=== PATIENT | female | born 1970 | race Caucasian/White ===

== ENCOUNTER 2025-02-04 21:18 | Emergency (ER) | payer BC, SELFPAY ==
[2025-02-04 21:24] VITALS: PULSE 125; O2SAT 95
--- NOTE | 2025-02-04 21:24 | ED_ITS ---
HPI - Neck Pain/Injury General Chief Complaint: Neck Pain/Injury Stated Complaint: neck, head, back px x2 days Time Seen by Provider: 02/04/25 21:21 History of Present Illness HPI Narrative: 55-year-old female with a past medical history diabetes, comes into the ED from home for evaluation of neck pain. 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 However she denies any numbness weakness tingling to bilateral upper and lower extremities. She was able to stand bear weight ambulate here in the emergency department. She denies any trauma or falls denies any visual disturbances or headache. She states that the pain has persisted and is now unable to sleep secondary to it therefore decided come into the ED for further evaluation treatment. Related Data Previous Rx's Medication Instructions Recorded diazepam 5 mg tablet (Valium) 5 mg PO BEDTIME PRN muscle spasm 3 02/04/25 days #3 tabs oxycodone-acetaminophen 5 mg-325 1 tab PO Q8H PRN pain 3 days #9 02/04/25 mg tablet (Percocet) tabs Allergies Allergy/AdvReac Type Severity Reaction Status Date / Time Penicillins Allergy Anaphylaxis Verified 02/04/25 21:28 Review of Systems Review of Systems Narrative: General: Denies fever, chills, weight loss HEENT: Denies headache, eye drainage, eye irritation, head trauma, sore throat, voice change Cardiovascular: Denies any chest pain, palpitations, tachycardia Respiratory: Denies any shortness of breath, cough, wheeze, stridor GI/: Denies any abdominal pain, nausea, vomiting, diarrhea, bright red blood per rectum, melanotic stools, urinary frequency, urinary retention, dysuria, hematuria MSK: Positive neck pain Skin: Denies any rashes, lesions, discoloration Neuro: Denies any headache, lightheadedness, dizziness, fainting, weakness Psych: Denies SI/HI Patient History Social History Smoking Status: Current every day smoker Exam Narrative Exam Narrative: General: Cooperative, comfortable, well-developed, not in acute distress HEENT: Normocephalic, atraumatic, PERRLA, normal sclera, eyelids normal, Neck: Active full range of motion, atraumatic Chest: Normal to inspection, negative crepitus, no overlying erythema ecchymosis Respiratory: Normal respiratory effort, not in acute respiratory distress, clear to auscultation bilaterally negative cough, wheeze, tachypnea, rhonchi, rales Cardiology: Regular rate rhythm negative gallop, murmur, rubs GI/: Normal to inspection, soft, nonrigid, no tenderness to palpation, exam deferred MSK: Full range of active range of motion of all 4 extremities, atraumatic, there is no tenderness to palpation of the midline cervical thoracic spine there is tenderness to palpation of the paraspinal muscles right side worse than left of the cervical region as well as the upper thoracic, there is no overlying erythema ecchymosis or gross deformities. on exam patient having difficulty turning her head passive and actively right and left secondary to pain. Patient neurovascularly intact bilateral upper and lower extremities Skin: No rashes lesions noted Neuro: Alert awake oriented x3, moves all 4 extremities spontaneously, cranial nerves intact, able to answer all questions appropriately follows commands appropriately Psych: Cooperative, negative suicidal or homicidal ideations Initial Vital Signs Initial Vital Signs: Vital Signs Temperature 97.9 F 02/04/25 21:28 Pulse Rate 117 H 02/04/25 21:28 Respiratory Rate 18 02/04/25 21:28 Blood Pressure 162/91 H 02/04/25 21:28 Pulse Oximetry 94 02/04/25 21:28 Oxygen Delivery Method Room Air 02/04/25 21:28 Course Orders Ordered: ED Orders 02/04/25 21:26 CT cervical spine wo con Stat Discontinued Medications Diazepam (Diazepam 2 Mg Tablet) 2 mg PO NOW ONE Stop: 02/04/25 21:26 Last Admin: 02/04/25 21:42 Dose: 2 mg Documented By: MR Lidocaine (Lidocaine 5% Patch) 1 each TOP NOW ONE Stop: 02/04/25 21:26 Last Admin: 02/04/25 21:42 Dose: 1 each Documented By: MR Oxycodone/Acetaminophen (Oxycodone/Acetaminophen 5/325 Tablet) 1 tab PO NOW ONE Stop: 02/04/25 21:26 Last Admin: 02/04/25 21:42 Dose: 1 tab Documented By: MR Vital Signs Vital signs: Vital Signs - 8 hr 02/04/25 21:28 Temperature 97.9 F Pulse Rate 117 H Respiratory Rate 18 Blood Pressure 162/91 H Pulse Oximetry 94 Oxygen Delivery Method Room Air MDM - Neck Pain/Injury Differential Diagnosis Differential diagnosis: Likely disc disorder of cervical region, cervical radiculopathy, torticollis and strain of neck muscle Imaging Data CT - cervical spine: Radiologist's Impression: [address] [address] [address] Scan Report Signed Patient: Radha Goldberg MR#: [id number] : 1970 Acct:[id number] Age/Sex: 55 / F Date of Service: 02/04/25 Loc: ED Accession Number: [id number] Procedure: CT cervical spine wo con Ordering Provider: Kailash Frost D.O. PROCEDURE: CT CERVICAL SPINE WO CON INDICATIONS: neck pain TECHNIQUE: Noncontrast 3 mm thick sections acquired from the skull base to the T4 level. Sagittal and coronal reformats were then constructed. For radiation dose reduction, the following was used: automated exposure control, adjustment of mA and/or kV according to patient size. COMPARISON: None. FINDINGS: Image quality: .. Bones: Reversal of the normal cervical lordosis. Trace grade 1 anterolisthesis C3 on four. Otherwise normal alignment. Moderate anterior and posterior endplate osteophytes from C5 through C7. Moderate to severe disc height loss C5-6, C6-7, and to lesser extent C7-T1. C1-2 interval is intact with mild degenerative spurring anteriorly. Soft tissues: Prevertebral soft tissues are normal in thickness. No paravertebral hematomas. No apical pneumothoraces. IMPRESSION: No CT evidence acute process in the cervical spine. Chronic appearing endplate spurring and disc height loss in the mid and lower cervical spine. Loss of lordosis may be due to muscle spasm or posture. [facility] Narrative Medical decision making narrative: 55-year-old female with a history of diabetes presenting for nontraumatic neck pain and upper back pain started after she felt like she pulled a muscle at work as a farmworker [employer] on . On exam patient neurovascularly intact no focal deficits, she does have difficulty turning her head left and right secondary to the pain, she does have tightness /paraspinal tenderness to palpation of the cervical and upper thoracic without any overlying skin changes. Patient was given Valium Percocet lidocaine patch here in the emergency department with improvement of her symptoms. CT scan was obtained Did not show any acute findings did show a slight loss of lordosis consistent with muscle spasms. patient was instructed to follow up with primary care, safe for discharge home with outpatient follow up. Discharge Plan Departure Patient Disposition: Home Clinical Impression: Muscle spasms of neck Instructions: DI for Neck Pain, DI for Muscle Spasm Activity Restrictions/Additional Instructions: Please follow up with your primary care doctor Please read the discharge instructions sheet carefully and bring all papers to all doctor follow-up visits, as it may contain information that your doctor may want to see. Disease processes change and evolve, if your symptoms worsen or if you develop any new symptoms that are concerning to you please return for evalua tion. Your evaluation today does not show any evidence of any life- threatening/serious illnesses requiring admission to the hospital or surgery. Please follow-up with your doctor for re-evaluation in approximately 1 day. Seek immediate medical attention for any worrisome symptoms. *If you do not have a primary care provider please contact the [facility] Resource line at [phone]. They will ask some questions about your medical history and help get you set up with a doctor in the community. Prescriptions: New diazepam [Valium] 5 mg tablet 5 mg PO BEDTIME PRN (Reason: muscle spasm) 3 Days Qty: 3 0RF oxycodone-acetaminophen [Percocet] 5-325 mg tablet 1 tab PO Q8H PRN (Reason: pain) 3 Days Qty: 9 0RF Referrals: Miscellaneous,Doctor, [Non-Staff] - Stand Alone Forms: Patient Portal/API/Survey
[2025-02-04 21:25] VITALS: BP 162/91; PULSE 122; O2SAT 94
[2025-02-04 21:28] VITALS: BP 162/91; PULSE 117; RESP 18; TEMP 36.6; O2SAT 94; BMI 36.1
[2025-02-04 21:30] VITALS: PULSE 118; O2SAT 93
[2025-02-04] MEDS: OXYCODONE/ACETAMINOPHEN 5/325 TABLET 1 TAB PO (21:42)
[2025-02-04] MEDS: diazePAM 2 MG TABLET PO ×2 (21:42→22:44)
[2025-02-04] MEDS: LIDOCAINE 5% PATCH 1 EACH TOP (21:42)
[2025-02-04 22:00] VITALS: PULSE 114; O2SAT 93
[2025-02-04 22:30] VITALS: PULSE 114; O2SAT 92
[2025-02-04] MEDS: ONDANSETRON 4 MG ODT SL (22:50)
== END 2025-02-04 23:02 | disposition home or self-care (01) ==
PROVIDERS: Emergency Provider Student in an Organized Health Care Education/Training Program; PCP Internal Medicine
DX: M62.838 Other muscle spasm (principal); M54.2 Cervicalgia
CPT/HCPCS: 72125; 99283; 99284